=== PATIENT | female | born 1985 | race Two or more races ===

== ENCOUNTER 2023-06-09 13:51 | Outpatient (CLI) | payer OTHER | END 2023-06-09 14:03 | disposition home or self-care (01) | LOC: MAMO-SONO 13:51 | PROVIDERS: ATTEND Obstetrics & Gynecology Gynecology | DX: N63 Unspecified lump in breast (principal); N64.4 Mastodynia; N60.11 Diffuse cystic mastopathy of right breast; N63.10 Unspecified lump in the right breast, unspecified quadrant ==

== ENCOUNTER 2024-12-07 10:42 | Outpatient (CLI) | payer OTHER | END 2024-12-07 10:51 | disposition home or self-care (01) | LOC: MAMO-SONO 10:42 | PROVIDERS: ATTEND Obstetrics & Gynecology Gynecology | DX: N63 Unspecified lump in breast (principal); N64.4 Mastodynia; N60.11 Diffuse cystic mastopathy of right breast ==